=== PATIENT | male | born 1945 | race Two or more races ===

== ENCOUNTER 2022-04-08 08:06 | Day surgery (SDC) | payer OTHER ==
[~2022-04-08] VITALS: Ht 180.3 cm; Wt 99.3 kg
[~2022-04-08 08:06] MED LIST: ALLO300T2 PO; ATEN25TA PO; ATOR40TA52 PO; CLON0.1T PO; LISI20TA28 PO; METF-370 PO; PANT40T PO
[2022-04-08] MEDS ORDERED: ANGIOMAX 250 MG VIAL IV ONE (09:56)
[2022-04-08] MEDS ORDERED: SODIUM CHL 0.9% 0 ML ONE (09:57)
[2022-04-08] MEDS ORDERED: IODIXANOL 320MG/ML 100ML BTL IV ONE (09:57)
[2022-04-08] MEDS ORDERED: MIDAZOLAM HCL 2MG/2ML 2ml VIAL (1mg/ml) ONE (09:57)
[2022-04-08] MEDS ORDERED: LIDOCAINE 2%HCL (LOCAL ANESTH.) INJ 20ML MDV ONE (09:57)
[2022-04-08] MEDS ORDERED: fentaNYL CITRATE 100 MCG/2 ML VL ONE (09:58)
[2022-04-08] MEDS ORDERED: HEPARIN SODIUM (PORCINE) 5000 UNITS/ML 1ML VIAL ONE (10:14)
[2022-04-08] MEDS ORDERED: VERAPAMIL 2.5MG/ML INJ 2ML VIAL IV ONE (10:14)
== END 2022-04-08 13:29 | disposition home or self-care (01) ==
LOC: CATH 08:06
PROVIDERS: ATTEND Internal Medicine
DX: I25.118 Atherosclerotic heart disease of native coronary artery with other forms of angina pectoris (principal); R94.30 Abnormal result of cardiovascular function study, unspecified; I25.82 Chronic total occlusion of coronary artery; I10 Essential (primary) hypertension; Z95.5 Presence of coronary angioplasty implant and graft; R94.39 Abnormal result of other cardiovascular function study; I07.1 Rheumatic tricuspid insufficiency; R97.20 Elevated prostate specific antigen [PSA]; Z79.899 Other long term (current) drug therapy; Z87.891 Personal history of nicotine dependence; Z20.822 Contact with and (suspected) exposure to COVID-19
CPT/HCPCS: 93454; C1769; C1887; C1894; J1644; J2250; J3010; J7030; Q9967; U0003; 99152